=== PATIENT | male | born 1985 | race African-American/Black ===

== ENCOUNTER 2019-03-06 10:36 | Emergency (ER) | payer SELFPAY ==
[~2019-03-06] VITALS: Ht 175.3 cm; Wt 96.0 kg
[2019-03-06 11:53] VITALS: BP 128/87
== END 2019-03-06 11:54 | disposition home or self-care (01) ==
LOC: ER 10:36
DX: F10.129 Alcohol abuse with intoxication, unspecified (principal); Y90.9 Presence of alcohol in blood, level not specified
CPT/HCPCS: 93005; 99283